=== PATIENT | male | born 1970 | race Caucasian/White ===

== ENCOUNTER → 2018-04-21 | Emergency (ER) | payer BC, OTHER ==
[~2018-04-21] VITALS: Ht 190.5 cm; Wt 77.1 kg
[~2018-04-21] MED LIST: COLACE100 MG ORAL; MAGNESIUM27 MG PO; MULTI VITAMIN1 EACH ORAL; [UNRECOGNIZED DRUG - OTHER] BC
[2018-04-21 12:56] VITALS: BP 139/77
[2018-04-21 13:38] VITALS: BP 128/86
--- NOTE | 2018-04-22 08:23 | Emergency Room Report ---
History of Present Illness General Chief Complaint: Abdominal Pain Source: Patient Present Illness HPI Patient is a 47-year-old male presented after increased left lower, abdominal discomfort. Patient reports having similar symptoms in the past in the right inguinal area. Patient had prior right inguinal hernia repair. He denies evidence he reports having worsening discomfort to the area after heavy lifting. Patient had prior history of hernia repair to the right side. He denies any vomiting or testicular pain. He reports having increased fullness to the left inguinal area. He denies any change in bowel habits. He denies any fever. He reports being a cigarette smoker and states he smokes approximately 5 cigarettes a day. Allergies: Coded Allergies: No Known Allergies (Unverified , 04/21/18) Patient History Past Medical History: see triage record Reviewed Nursing Documentation: PMH: Agreed; PSxH: Agreed Nursing Documentation-PMH Past Medical History: No History, Except For Review of Systems All Other Systems: negative except mentioned in HPI Physical Exam Vital Signs Date Time Temp Pulse Resp B/P (MAP) Pulse Ox O2 Delivery O2 Flow Rate FiO2 04/21/18 12:46 98.2 93 20 139/89 95 Room Air Sp02 EP Interpretation: reviewed, normal General Appearance: normal inspection, well appearing, no apparent distress, alert, GCS 15 Head: atraumatic ENT: normal ENT inspection, hearing grossly normal, normal voice Neck: normal inspection, full range of motion, supple, no bony tend Respiratory: normal inspection, lungs clear, normal breath sounds, no respiratory distress, no retraction, no wheezing Cardiovascular #1: regular rate, rhythm, no edema Gastrointestinal: normal inspection, normal bowel sounds, non tender, soft, no guarding, hernia - left inguinal, reducible, non tender Genitourinary: no CVA tenderness Musculoskeletal: normal inspection, back normal, normal range of motion Neurologic: normal inspection, alert, responsive, speech normal Psychiatric: normal inspection, judgement/insight normal, mood/affect normal Skin: normal inspection, normal color, no rash Medical Decision Making Diagnostic Impression: Primary Impression: Left inguinal hernia ER Course Patient presented for abdominal pain. Differential diagnoses included hernia, diverticulitis, ischemic bowel, appendicitis, perforated viscus, abdominal aortic aneurysm, inferior myocardial infarction, viral gastroenteritis. Patient has a benign exam and does not appear to require any further imaging or laboratory testing at this time. The patient appears to have a left inguinal hernia. This does not appear to be incarcerated or strangulated. There are no skin changes noted. Patient was advised outpatient surgical follow-up and signs of obstruction. Patient was advised to return if he felt worse. He was given a prescription for truss advised not to perform any heavy lifting and to quit smoking. Patient is advised not to lift any objects greater than 20 pounds.Patient advised to follow-up with his primary care physician for surgical referral Last Vital Signs Date Time Temp Pulse Resp B/P (MAP) Pulse Ox O2 Delivery O2 Flow Rate FiO2 04/21/18 13:38 99.1 92 17 128/86 Room Air 04/21/18 12:56 97 Status: improved Disposition: HOME, SELF-CARE Condition: Stable Scripts [Truss] No Conflict Check BC, #1 Prov: Jerry Martinez MD 04/21/18 Docusate Sodium* (COLACE*) 100 Mg Capsule 100 MG ORAL TWICE A DAY, #20 CAP Prov: Jerry Martinez MD 04/21/18 Referrals: OTHER,REFERRING (PCP) Departure Forms: Return to Work Other Restrictions: no lifting greater than 20 lbs Patient Instructions: Abdominal Pain, Adult Additional Instructions: Follow up with primary care physician for general surgery referal. Jerry Martinez MD Apr 22, 2018 08:23
== END | disposition home or self-care (01) ==
LOC: EMR 13:30
DX: K40.90 Unilateral inguinal hernia, without obstruction or gangrene, not specified as recurrent (principal); F17.210 Nicotine dependence, cigarettes, uncomplicated
CPT/HCPCS: 99282

== ENCOUNTER 2018-05-15 05:40 | Day surgery (SDC) | payer BC ==
[~2018-05-15] VITALS: Ht 190.5 cm; Wt 79.4 kg
[2018-05-15] VITALS (8 sets, daily range): BP systolic 105–140; BP diastolic 59–89
[2018-05-15] MEDS ORDERED: VITAMIN B2 PO (06:31)
[2018-05-15] MEDS ORDERED: MILK THISTLE140 M1 PO (06:31)
[2018-05-15] MEDS ORDERED: ASPIRIN325 MG ORAL (06:31)
[2018-05-15] MEDS ORDERED: POTASSIUM 25 M25 ME1 PO (06:32)
--- NOTE | 2018-05-15 06:59 | Pre-Procedure Note/Attestation ---
Pre-Procedure Note/Attestation Complete Prior to Procedure Planned Procedure: left Procedure Narrative: laparoscopic left inguinal hernia repair with mesh Indications for Procedure Pre-Operative Diagnosis: left inguinal hernia Attestation I attest that I discussed the nature of the procedure; its benefits; risks and complications; and alternatives (and the risks and benefits of such alternatives ), prior to the procedure, with the patient (or the patient's legal public health representative). I attest that, if there was a reasonable possibility of needing a blood transfusion, the patient (or the patient's legal public health representative) was given the [facility] standardized written summary, pursuant to the Jose Angel Deena Blood Safety Act ([place] Health and Safety Code # 1645, as amended). I attest that I re-evaluated the patient just prior to the surgery and that there has been no change in the patient's H&P, except as documented below: Mike Saenz May 15, 2018 06:59
[2018-05-15] MEDS ORDERED: ceFAZolin sod 2 GM in D5W 110 ML IV ONE (07:00)
[2018-05-15] MEDS ORDERED: Bupivacaine w/Epi 0.5% 30ml Vial INJ ONE (07:01)
[2018-05-15] MEDS ORDERED: Bacitracin 50000 Units Vial ONE (07:01)
[2018-05-15] MEDS ORDERED: LR 1000ml 1,000 ML IVLG SCH (07:05)
--- NOTE | 2018-05-15 07:10 | Anethesia Preoperative Eval ---
Anesthesia Pre-op PMH/ROS General Date of Evaluation: May 15, 2018 Time of Evaluation: 07:24 Anesthesiologist: Shani ASA Score: ASA 2 Mallampati Score Class I : Soft palate, uvula, fauces, pillars visible Class II: Soft palate, uvula, fauces visible Class III: Soft palate, base of uvula visible Class IV: Only hard plate visible Mallampati Classification: Class I Surgeon: Letty Diagnosis: Left Inguinal Hernia Surgical Procedure: Laparoscopic Left Inguinal Hernia Repair Anesthesia History: none Family History: no anesthesia problems Allergies: Coded Allergies: No Known Allergies (Unverified , 04/21/18) Medications: see eMAR Patient NPO?: Yes Past Medical History Gastrointestinal/Genitourinary: Reports: GERD PSxH Narrative: R Ulnar Nerve Transposition, R IHR Anesthesia Pre-op Phys. Exam Physician Exam Last Vital Signs Date Time Temp Pulse Resp B/P (MAP) Pulse Ox O2 Delivery O2 Flow Rate FiO2 05/15/18 06:35 97.4 63 20 136/77 98 Room Air Constitutional: NAD Neurologic: CN 2-12 intact Cardiovascular: RRR Respiratory: CTA Gastrointestinal: S/NT/ND Airway Exam Mallampati Score: Class I MO: full ROM: full Teeth: intact Anesthesia Pre-op A/P Risk Assessment & Plan Assessment: ASA 2 Plan: GA, SED GlideScope Go Status Change Before Surgery: No Pre-Antibiotics Dru Gram Ancef IV Given Within 1 Hr of Incision: Yes Time Given: 07:41 Salbador Mcleod MD May 15, 2018 07:10
[2018-05-15] MEDS ORDERED: Lidocaine 1% MPF 10mg/ml 5ml ONE (07:14)
[2018-05-15] MEDS ORDERED: Propofol 200mg/20ml IV ONE (07:14)
[2018-05-15] MEDS ORDERED: Dexamethasone 4mg/ml vial ONE (07:14)
[2018-05-15] MEDS ORDERED: Sodium Chloride 10ml vial INJ ONE (07:14)
[2018-05-15] MEDS ORDERED: LORazepam Inj 2mg/ml 1ml IV PRN (07:15)
[2018-05-15] MEDS ORDERED: fentaNYL 100 mcg/2 mL IV PRN (07:15)
[2018-05-15] MEDS ORDERED: Atropine Sulfate 0.4mg/ml inj IVP PRN (07:15)
[2018-05-15] MEDS ORDERED: Ketorolac 30mg Inj IV PRN ×2 (07:15)
[2018-05-15] MEDS ORDERED: HYDROcodone/Acetamin 7.5/325 tab ORAL PRN (07:15)
[2018-05-15] MEDS ORDERED: Acetaminophen (Non formulary) 100 ML IV ONE (07:15)
[2018-05-15] MEDS ORDERED: Midazolam 2mg/2ml Inj IVP PRN (07:15)
[2018-05-15] MEDS ORDERED: Metoclopramide 10mg/2ml Inj IVP PRN (07:15)
[2018-05-15] MEDS ORDERED: Norco 5mg/325mg tab ORAL PRN ×2 (07:15→09:30)
[2018-05-15] MEDS ORDERED: oxyCODONE HCL/Acetaminophen 5/325mg ORAL PRN (07:15)
[2018-05-15] MEDS ORDERED: Meperidine 50mg/ml Inj(FOR RIGORS ONLY) IVP PRN (07:15)
[2018-05-15] MEDS ORDERED: DiphenhydrAMINE 50mg/ml Inj IVP PRN (07:15)
[2018-05-15] MEDS ORDERED: Hydromorphone 0.5mg/0.5ml inj IVP PRN (07:15)
[2018-05-15] MEDS ORDERED: fentaNYL 100 mcg/2 mL IV ONE (07:16)
[2018-05-15] MEDS ORDERED: LR 1000ml ONE (07:30)
[2018-05-15] MEDS ORDERED: Sterile Water Irrig 1000ml IRRIG ONE (07:30)
[2018-05-15] MEDS ORDERED: NS Irrig 1000ml ONE (07:30)
[2018-05-15] MEDS ORDERED: Zemuron 50mg/5ml Inj IV ONE (07:40)
--- NOTE | 2018-05-15 07:59 | Immediate Post-Op Evaluation ---
Immediate Post-Op Evalulation Immediate Post-Op Evalulation Procedure: Laparoscopic Left Inguinal Hernia Repair Date of Evaluation: May 15, 2018 Time of Evaluation: 09:32 IV Fluids: 800 LR Blood Products: 0 Estimated Blood Loss: 10 Urinary Output: 0 Blood Pressure Systolic: 140 Blood Pressure Diastolic: 88 Pulse Rate: 69 Respiratory Rate: 16 O2 Sat by Pulse Oximetry: 100 Temperature (Fahrenheit): 97.9 Pain Score (1-10): 2 Nausea: No Vomiting: No Complications 0 Patient Status: awake, reacts, patent, extubated, none Hydration Status: adequate Dru Gram Ancef IV Given Within 1 Hr of Incision: Yes Time Given: 07:41 Salbador Mcleod MD May 15, 2018 07:59
--- NOTE | 2018-05-15 08:00 | 48 Hour Post Anesthesia Eval ---
Post Anesthesia Evaluation Procedure: Laparoscopic Left Inguinal Hernia Repair Date of Evaluation: May 15, 2018 Time of Evaluation: 11:43 Blood Pressure Systolic: 133 0: 88 Pulse Rate: 69 Respiratory Rate: 18 Temperature (Fahrenheit): 98.2 O2 Sat by Pulse Oximetry: 99 Airway: patent Nausea: No Vomiting: No Pain Intensity: 2 Hydration Status: adequate Cardiopulmonary Status: Stable Mental Status/LOC: patient returned to baseline Follow-up Care/Observations: 0 Post-Anesthesia Complications: 0 Follow-up care needed: ready to discharge Salbador Mcleod MD May 15, 2018 08:00
[2018-05-15] MEDS ORDERED: Lidocaine 1% Plain 30 ml INJ ONE (08:25)
[2018-05-15] MEDS ORDERED: Neostigmine 1mg/ml 10ml Inj ONE (08:57)
[2018-05-15] MEDS ORDERED: Glycopyrrolate 0.2mg/ml 1ml Vial ONE (08:57)
--- NOTE | 2018-05-15 09:18 | Brief Operative Note ---
Immediate Post Operative Note Operative Note Pre-op Diagnosis: left inguinal hernia Procedure: 1. laparoscopic left inguinal hernia repair with mesh 2. umbilical hernia repair Post-op Diagnosis: 1. left indirect inguinal hernia 2. small umbilical hernia Surgeon: vivien Anesthesiologist: roselyn Anesthesia: general, local Specimen: none Complications: none Condition: stable Fluids: see records Estimated Blood Loss: minimal Drains: none Implant(s) used?: Yes Mike Saenz May 15, 2018 09:18
[2018-05-15] MEDS ORDERED: Tylenol #3 tab (300mg/30mg) ORAL PRN (09:30)
[2018-05-15] MEDS ORDERED: HYDROmorphone 1mg/ml Carpuject SUBQ PRN (09:30)
[2018-05-15] MEDS ORDERED: D5 1/2NS 1,000 ML IV SCH (11:35)
--- NOTE | 2018-05-15 19:00 | Operative Note - Dictated ---
DATE OF OPERATION: 05/15/2018 PREOPERATIVE DIAGNOSIS: Left inguinal hernia. POSTOPERATIVE DIAGNOSIS: 1. Left indirect inguinal hernia. 2. Small umbilical hernia. OPERATION PERFORMED: 1. Laparoscopic left inguinal hernia repair with mesh. 2. Umbilical hernia repair. ATTENDING SURGEON: Mike Saenz M.D. COMPUTER SYSTEMS DESIGN ANALYST: None ANESTHESIOLOGIST: Salbador Mcleod M.D. ANESTHESIA: General FIRST AID NURSE. ESTIMATED BLOOD LOSS: Minimal. IV FLUIDS: Please see anesthesia records. COMPLICATIONS: None. DRAINS: None. SPECIMENS: None. IMPLANTS: Bard 3D max mesh, large size, lot [id number], reference [id number], date of expiration 01/13/2023 as well as Bard SorbaFix absorbable fixation reference #[id number], lot number [id number], expiration 01/14/2020. ANTIBIOTICS: The patient given 2 g Ancef IV one hour prior to cut time. COUNTS: Sponge and needle count correct x2. WOUND CONSULTATION: Class 1. INDICATIONS FOR PROCEDURE: This is a 47-year-old male who was referred to Dr. Saenz for evaluation of a left groin bulge. The patient has history of a right inguinal hernia, status post open repair with mesh placed 22 years old and in the past month noted a left inguinal bulge. He primarily thinks similar to what he had on the right side prior to repair and therefore sought evaluation with a surgeon. The patient is otherwise asymptomatic, comfortable and without complaints. Upon examination, patient was noted to have a reducible left inguinal hernia. Repair was recommended and indicated. Risks, benefits, and alternatives were discussed with patient who expressed understanding and decision made to proceed with laparoscopic repair. OPERATIVE NOTE: The patient was taken to the operating room and placed on the operative room table with bilateral arms tucked. All bony prominences were well padded. SCDs were placed. Preoperative time-out was taken identifying the patient, procedure, operative staff, and surgical staff. The patient was given 2 g Ancef IV one hour prior to cut time. SCDs were placed. No Gómez catheter was inserted given the patient just voided prior to entering the operating room. General anesthesia was induced. The patient was intubated. The abdomen was clipped, prepped, and draped in standard surgical fashion. When the patient was under general anesthetic, the abdomen inspected for port site placements and a small umbilical defect was identified. Given this, decision made to go through umbilicus as a port site and in turn upon completion of the procedure repairing the defect. A incision was made using a fresh #11 scalpel. Incision was carried down to the fascia where the defect was identified. Entry into the abdomen was identified under direct visualization through this umbilical defect. A 12 mm Una trocar was inserted without complication. The abdomen was insufflated to 12 to 15 mmHg. The patient tolerated the insufflation well. Laparoscope was inserted. The abdomen was inspected. The right lobe of the liver had some blunted edges and some white streaking, but otherwise healthy. The left lobe of the liver was healthy with sharp edges, stomach and intestines could be visualized were otherwise normal. In the right lower quadrant, the prior hernia repair was satisfactory and identified without any recurrence and the mesh was notable with in the peritoneum. The pelvis otherwise normal. In left lower abdomen, a moderate-sized indirect inguinal hernia was identified. At this time, secondary trocars were placed under visualization beginning with a 5 mm left mid abdominal trocar followed by a 5 mm right mid abdominal trocar. Laparoscopic instruments were inserted and the incision was made at the peritoneal lining approximately 2 cm above the area of the defect from the median umbilical ligament towards the anterior superior iliac spine. A dissection window plane was created through the peritoneum medially and laterally, medially to the Myron's ligament, and pubic tubercle laterally as necessary for appropriate mesh placement. The umbilical hernia defect was reduced and once this completed, the cord structures were identified during reduction and protected throughout the conclusion of the procedure. Once the hernia was reduced, the defect was identified and appropriate anatomy was noted without any complication. At this time, a Bard 3D max left-sided large mesh was inserted into the operative field and placed with appropriate positioning. The mesh was then tacked to the Myron's ligament using Sorbafix absorbable fixation tacks. Once this was completed, the peritoneal lining was reapproximated using SorbaFix fixation tacks. At this time, satisfactory repair was identified without any complications with very good mesh placement covering all potential hernia defects. We began the conclusion of the procedure with removal of the secondary trocars under direct visualization followed by desufflation of the abdomen. The umbilical trocar site was then removed. Local anesthetic was infiltrated to all port sites and skin incisions throughout the procedure as necessary for the patient's comfort. The umbilical hernia defect which was identified earlier and utilized the port site was repaired by cleaning the fascial edges. Once clean and resurfaced, the fascia was reapproximated using #0 Vicryl [id number] suture. Following this, skin incisions were all cleansed and reapproximated using 4-0 Monocryl subcuticular interrupted sutures. Skin glue and Steri-Strips were applied. At this point, we had reached the end of the procedure and both testicles were identified into the scrotal sac. The patient tolerated the procedure well, was extubated and taken to postanesthetic care unit in a stable condition. Mike Saenz M.D. DR: Akshat JOB#: [id number] CC: QUEENIE
== END 2018-05-15 12:35 | disposition home or self-care (01) ==
LOC: SUR 05:40
DX: K40.90 Unilateral inguinal hernia, without obstruction or gangrene, not specified as recurrent (principal); K42.9 Umbilical hernia without obstruction or gangrene; K21.9 Gastro-esophageal reflux disease without esophagitis
CPT/HCPCS: 49585; 49650; C1781; J0690; J1100; J2001; J2250; J2405; J2704; J2710; J3010; 94003; 94150